=== PATIENT | male | born 1960 | race Caucasian/White ===

== ENCOUNTER 2018-10-14 08:50 | Emergency (ER) | payer MEDICAID ==
[~2018-10-14 08:50] MED LIST: HYDR-4383 PO
[2018-10-14 08:55] VITALS: BP 147/99
== END 2018-10-14 09:39 | disposition home or self-care (01) ==
LOC: ER 08:50
DX: F12.90 Cannabis use, unspecified, uncomplicated (principal); F15.90 Other stimulant use, unspecified, uncomplicated; F11.90 Opioid use, unspecified, uncomplicated; M19.90 Unspecified osteoarthritis, unspecified site; G89.29 Other chronic pain; M54.9 Dorsalgia, unspecified
CPT/HCPCS: 99284

== ENCOUNTER 2020-09-23 06:16 | Day surgery (SDC) | payer MEDICAID ==
[2020-09-17 11:01] LABS: CLARITY,URINE CLEAR (Clear); COLOR,URINE YELLOW (Yellow); GLUCOSE, URINE NEGATIVE (Neg); KETONES,URINE NEGATIVE (Neg); LEUKOCYTE ESTERASE ,URINE NEGATIVE (Neg); NITRITES, URINE NEGATIVE (Neg); OCCULT BLOOD,URINE NEGATIVE (Neg); PH,URINE 6.5 (4.8-8.0); PROTEIN,URINE NEGATIVE (Neg); UROBILINOGEN,URINE 0.2 E.U/dL (0.2-1.0)
[2020-09-17 11:02] LABS: UA COLLECTION TYPE NON-SPECIFIED
[2020-09-17 11:03] LABS: BASOPHILS % (AUTO) 0.6 % (0-1); EOSINOPHILS # (AUTO) 0.2 X10'3 (0-0.9); LYMPHOCYTES # (AUTO) 1.6 X10'3 (1.1-4.8); LYMPHOCYTES % (AUTO) 26.1 % (21-51); MEAN CORPUSCULAR HEMOGLOBIN 27.7 PG (27.0-31.0); MEAN CORPUSCULAR HGB CONC 33.3 g/dL (33.0-36.5); MEAN CORPUSCULAR VOLUME 83.4 FL (78-98); MEAN PLATELET VOLUME 8.2 FL (7.4-10.4); MONOCYTES # (AUTO) 0.3 X10'3 (0-0.9); MONOCYTES % (AUTO) 4.7 % (2-12); NEUTROPHILS # (AUTO) 4.1 X10'3 (1.8-7.7); NEUTROPHILS % (AUTO) 65.6 % (42-75); PRE OP HEMOGLOBIN 13.3 g/dL (14.0-17.9); PRE OP PLATELET COUNT 168 X10'3 (140-440); RED BLOOD COUNT 4.79 X10'6 (4.70-6.10); RED CELL DISTRIBUTION WIDTH 14.3 % (11.5-14.5)
[2020-09-17 11:17] LABS: PRE OP PROTIME 10.1 SECONDS (9.0-12.0)
[2020-09-17 11:27] LABS: ALBUMIN 3.6 G/DL (3.4-5.0); ALBUMIN/GLOBULIN RATIO 0.9 (1.1-1.5); ALKALINE PHOSPHATASE 84 IU/L (46-116); BLOOD UREA NITROGEN 28 MG/DL (7-18); BUN/CREATININE RATIO 30.8 (5.4-32.0); CALCIUM 9.1 MG/DL (8.5-10.1); CHLORIDE 104 MMOL/L (99-107); CREATININE 0.91 MG/DL (0.60-1.10); PRE OP ALT 21 U/L (30-65); PRE OP ANION GAP 7 (8-16); PRE OP AST 17 U/L (10-37); PRE OP BILIRUB, TOTAL 0.5 MG/DL (0.0-1.0); PRE OP GLUCOSE 98 MG/DL (70-104); PRE OP POTASSIUM 4.9 MMOL/L (3.4-5.1); PRE OP SODIUM 137 MMOL/L (135-145); TOTAL PROTEIN 7.6 G/DL (6.4-8.2); eGFR 84 ML/MIN
[2020-09-23] VITALS (15 sets, daily range): BP systolic 124–197; BP diastolic 66–141
[~2020-09-23] VITALS: Ht 170.2 cm; Wt 89.0 kg
[~2020-09-23 06:16] MED LIST changes: +BUPR1FIL3 SL; -HYDR-4383 PO; +IBU TD; +IBUP-862 PO; +MELOX TD; +NEURONTIN TD; +ceFAZolin 2gm in dextrose, iso 50 ML IV ONE; +famotidine 20mg tablet PO ONE; +ringers solution, lacted 1,000 ML IV SCH
[2020-09-23] MEDS ORDERED: METH-603 PO (07:12)
[2020-09-23] MEDS ORDERED: BUPIVAcaine/PF 2.5 mg/ml (0.25%) 30ml vial ONE ×2 (07:17→12:33)
[2020-09-23] MEDS ORDERED: midazolam 1 mg/ML 2ml injection ONE (09:43)
[2020-09-23] MEDS ORDERED: fentaNYL /PF 50mcg/ml 5ml ampule ONE (09:43)
[2020-09-23] MEDS ORDERED: sevoflurane 250ml liquid IH ONE (09:44)
[2020-09-23] MEDS ORDERED: acetaminophen 1000 MG/100ml vial IV ONE (09:44)
[2020-09-23] MEDS ORDERED: propofol inj 20 ML IV ONE (10:20)
[2020-09-23] MEDS ORDERED: neostigmine methylsulfate 1 MG/ML 10ml vial ONE (10:20)
[2020-09-23] MEDS ORDERED: dexamethasone sod phosphate 4mg/ml inj. ONE (10:20)
[2020-09-23] MEDS ORDERED: glycopyrrolate 0.2mg/ml inj ONE (10:20)
[2020-09-23] MEDS ORDERED: ondansetron/PF 4mg/2ml inj ONE (10:20)
[2020-09-23] MEDS ORDERED: rocuronium 10mg/ml inj IV ONE (10:20)
[2020-09-23] MEDS ORDERED: LIDOcaine 2% (20mg/ml) 5ml vial ONE (10:20)
[2020-09-23] MEDS ORDERED: ringers solution, lacted 1,000 ML IV SCH (11:20)
[2020-09-23] MEDS ORDERED: proCHLORperazine 10 MG/2 ml inj IV PRN (11:20)
[2020-09-23] MEDS ORDERED: ondansetron/PF 4mg/2ml inj IV PRN (11:20)
[2020-09-23] MEDS ORDERED: morphine 2 MG/ML inj. syringe IV PRN (11:20)
[2020-09-23] MEDS ORDERED: morphine 4 MG/ML inj SYRINge IV PRN (11:20)
[2020-09-23] MEDS ORDERED: meperidine/PF 25mg/ml syringe IV PRN ×3 (11:20)
[2020-09-23] MEDS ORDERED: BUPIVACAINE liposomal/PF 13.3 MG/ML vial IM ONE (12:30)
[2020-09-23] MEDS ORDERED: BUPIVAcaine/PF 2.5mg/ml (0.25%) 10ml vial ONE (12:30)
[2020-09-23] MEDS ORDERED: meperidine/PF 25mg/ml syringe ONE (13:35)
--- NOTE | 2020-09-23 13:37 | NUR ---
Received from OR via [facility], accompanied by Anesthesiologist DR. TERRY and report given by Anesthesiologist. PATIENT IS SLEEPING, SPINE ON GURNEY, FOUR BANDAGES ON LEFT LOWER QUADRANT AND ABDOMINAL BAND ON THE ABDOMEN, NO BLEEDING OR DRAINAGE NOTED, ON O2 10L WITH MASK, PIV ON LEFT FOREARM 20G LR RUNNING, SIDE RAILS UP, WILL MONITOR. Addendum: 09/23/20 at 1423 by Katharina Hough RN Amended: Links added.
[2020-09-23] MEDS ORDERED: hydrALAZINE 20mg/ml inj. IV ONE (14:10)
[2020-09-23] MEDS: hydrALAZINE 20mg/ml inj. IV PRN ×3 (14:12→14:44)
[2020-09-23 14:26] LABS: ISTAT CREATININE 0.9 mg/dL (0.8-1.3); ISTAT HGB 15.6 g/dl (14.0-18.0); ISTAT IONIZED CALCIUM 1.14 mmol/L (1.03-1.32); ISTAT K 4.7 mmol/L (3.5-5.1); POC BUN/CREATININE RATIO 32.2 (5.4-32.0)
--- NOTE | 2020-09-23 15:08 | NUR ---
PATIENT' BP CONTINUED TO INCREASE SINCE HIS ARRIVAL TO RECOVERY, CALLED DR. TERRY, UPDATED, ORDERS RECEIVED, HYDRALAZINE TAKEN FROM [facility] AND GIVEN EMERGENTLY WHILE WAITING FOR PHARMACY TO ACKNOWLEDGE. Addendum: 09/23/20 at 1511 by Katharina Hough RN Amended: Links added.
[2020-09-23] MEDS ORDERED: methadone 10mg tablet PO ONE (15:45)
--- NOTE | 2020-09-23 15:57 | NUR ---
PATIENT'S V.S. STABLE, PAIN IS 7/10 ON LLQ, PATIENT OFFERED IV TORADOL 30MG PER MD ORDER BUT HE REFUSES IT. METHASONE 50MG PO ADMINISTERED PER MD ORDER, PIV D/C'D FROM LEFT FOREARM 20G CATHETER INTACT, BANDAGES ON LLQ INTACT WITH NO BLEEDING OR DRAINAGE, ABD BAND IN PLACE, DISCHARGE INSTRUCTIONS GIVEN TO THE PATIENT, HE VERBALIZED UNDERSTANDING, PATIENT TRANSFERRED WITH WHEEL CHAIR WITHOUT INCIDENTS WITH ONE BAG OF BELONGINGS TO HIS SISTER WHO IS DRIVING HIM HOME. Addendum: 09/23/20 at 8374 by Katharina Hough RN Amended: Links added.
== END 2020-09-23 15:57 | disposition home or self-care (01) ==
LOC: PAS 06:16
PROVIDERS: ATTEND Surgery
DX: K43.9 Ventral hernia without obstruction or gangrene (principal); K42.9 Umbilical hernia without obstruction or gangrene; F32.9 Major depressive disorder, single episode, unspecified; Z20.822 Contact with and (suspected) exposure to COVID-19; M19.90 Unspecified osteoarthritis, unspecified site; M10.9 Gout, unspecified; I10 Essential (primary) hypertension; M86.9 Osteomyelitis, unspecified; F11.90 Opioid use, unspecified, uncomplicated; Z98.890 Other specified postprocedural states; Z87.891 Personal history of nicotine dependence; Z79.01 Long term (current) use of anticoagulants; Z86.19 Personal history of other infectious and parasitic diseases; Z83.3 Family history of diabetes mellitus; Z82.49 Family history of ischemic heart disease and other diseases of the circulatory system; Z83.6 Family history of other diseases of the respiratory system; Z82.61 Family history of arthritis
CPT/HCPCS: 36415; 49652; 64488; 71046; 80047; 80053; 81003; 82948; 85025; 85610; 85730; 87635; 93005; C1758; C1781; C9290; J0360; J1100; J2001; J2175; J2250; J2405; J2704; J2710; J3010; J3490; J7030; J7120; S2900; A4215; A4618; J0131

== ENCOUNTER 2020-10-01 06:29 | Emergency (ER) | payer MEDICAID ==
[~2020-10-01] VITALS: Ht 170.2 cm; Wt 84.1 kg
[~2020-10-01 06:29] MED LIST changes: -BUPR1FIL3 SL; +METH-603 PO; -ceFAZolin 2gm in dextrose, iso 50 ML IV ONE; -famotidine 20mg tablet PO ONE; -ringers solution, lacted 1,000 ML IV SCH
[2020-10-01] MEDS ORDERED: oxyCODONE/APAP 10/325mg tablet PO ONE ×2 (07:20→07:45)
[2020-10-01 07:59] LABS: BASOPHILS % (AUTO) 0.9 % (0-1); EOSINOPHILS # (AUTO) 0.3 X10'3 (0-0.9); EOSINOPHILS % (AUTO) 4.4 % (0-6); HEMATOCRIT 38.2 % (42.0-52.0); HEMOGLOBIN 12.4 g/dl (14.0-17.9); LYMPHOCYTES # (AUTO) 1.3 X10'3 (1.1-4.8); LYMPHOCYTES % (AUTO) 21.8 % (21-51); MEAN CORPUSCULAR HEMOGLOBIN 27.8 PG (27.0-31.0); MEAN CORPUSCULAR HGB CONC 32.6 g/dL (33.0-36.5); MEAN CORPUSCULAR VOLUME 85.5 FL (78-98); MEAN PLATELET VOLUME 8.3 FL (7.4-10.4); MONOCYTES # (AUTO) 0.4 X10'3 (0-0.9); MONOCYTES % (AUTO) 6.7 % (2-12); NEUTROPHILS # (AUTO) 3.9 X10'3 (1.8-7.7); NEUTROPHILS % (AUTO) 66.2 % (42-75); PLATELET COUNT 195 X10'3 (140-440); RED BLOOD COUNT 4.46 X10'6 (4.70-6.10); RED CELL DISTRIBUTION WIDTH 14.5 % (11.5-14.5); WHITE BLOOD COUNT 5.9 X10'3 (4.5-11.0)
[2020-10-01 08:04] LABS: ALANINE AMINOTRANSFERASE 32 U/L (12-78); ALBUMIN 3.2 G/DL (3.4-5.0); ALBUMIN/GLOBULIN RATIO 0.8 (1.1-1.5); ALKALINE PHOSPHATASE 73 IU/L (46-116); ANION GAP 6 (8-16); ASPARTATE AMINO TRANSFERASE 32 U/L (10-37); BILIRUBIN,TOTAL 0.3 MG/DL (0.1-1.0); BLOOD UREA NITROGEN 34 MG/DL (7-18); CALCIUM 8.9 MG/DL (8.5-10.1); CHLORIDE 105 MMOL/L (99-107); CREATININE 0.92 MG/DL (0.60-1.10); GLUCOSE 115 MG/DL (70-104); POTASSIUM 4.5 MMOL/L (3.5-5.1); SODIUM 141 MMOL/L (135-145); TOTAL PROTEIN 7.3 G/DL (6.4-8.2); eGFR 83 ML/MIN
[2020-10-01 12:08] VITALS: BP 134/75
== END 2020-10-01 12:14 | disposition home or self-care (01) ==
LOC: ER 06:30
DX: K43.9 Ventral hernia without obstruction or gangrene (principal); M19.90 Unspecified osteoarthritis, unspecified site; G89.29 Other chronic pain; F12.90 Cannabis use, unspecified, uncomplicated; F15.90 Other stimulant use, unspecified, uncomplicated; F11.90 Opioid use, unspecified, uncomplicated; Z87.891 Personal history of nicotine dependence; Z79.899 Other long term (current) drug therapy
CPT/HCPCS: 36415; 74176; 80053; 85025; 99285

== ENCOUNTER 2021-10-20 15:49 | Emergency (ER) | payer MEDICAID ==
[~2021-10-20] VITALS: Ht 170.2 cm; Wt 95.5 kg
[2021-10-20 16:32] LABS: BASOPHILS % (AUTO) 0.7 % (0-1); EOSINOPHILS # (AUTO) 0.2 X10'3 (0-0.9); EOSINOPHILS % (AUTO) 3.2 % (0-6); HEMATOCRIT 40.1 % (42.0-52.0); HEMOGLOBIN 13.2 g/dl (14.0-17.9); LYMPHOCYTES # (AUTO) 1.4 X10'3 (1.1-4.8); LYMPHOCYTES % (AUTO) 19.1 % (21-51); MEAN CORPUSCULAR HEMOGLOBIN 27.5 PG (27.0-31.0); MEAN CORPUSCULAR VOLUME 83.4 FL (78-98); MEAN PLATELET VOLUME 8.5 FL (7.4-10.4); MONOCYTES # (AUTO) 0.4 X10'3 (0-0.9); MONOCYTES % (AUTO) 4.9 % (2-12); NEUTROPHILS # (AUTO) 5.3 X10'3 (1.8-7.7); NEUTROPHILS % (AUTO) 72.1 % (42-75); PLATELET COUNT 182 X10'3 (140-440); RED BLOOD COUNT 4.81 X10'6 (4.70-6.10); RED CELL DISTRIBUTION WIDTH 14.1 % (11.5-14.5); WHITE BLOOD COUNT 7.4 X10'3 (4.5-11.0)
[2021-10-20 16:46] LABS: ALANINE AMINOTRANSFERASE 36 U/L (12-78); ALBUMIN 3.8 G/DL (3.4-5.0); ALKALINE PHOSPHATASE 77 IU/L (46-116); ANION GAP 3 (8-16); ASPARTATE AMINO TRANSFERASE 35 U/L (10-37); BILIRUBIN,TOTAL 0.8 MG/DL (0.1-1.0); BLOOD UREA NITROGEN 18 MG/DL (7-18); BUN/CREATININE RATIO 17.8 (5.4-32.0); CALCIUM 8.9 MG/DL (8.5-10.1); CHLORIDE 103 MMOL/L (99-107); CREATININE 1.01 MG/DL (0.60-1.10); GLUCOSE 129 MG/DL (70-104); SODIUM 136 MMOL/L (135-145); TOTAL CARBON DIOXIDE 30.1 MMOL/L (24-32); TOTAL PROTEIN 7.5 G/DL (6.4-8.2); eGFR 75 ML/MIN
[2021-10-20] MEDS ORDERED: iohexol 350MG/ML 100ml bottle IV ONE (17:51)
--- NOTE | 2021-10-20 18:00 | NUR ---
IV IN L AC 2 ATTEMPTS TG
[2021-10-20] MEDS ORDERED: ipratropium/albuterol 3ml nebule NEB STA (18:55)
[2021-10-20] MEDS ORDERED: magnesium 2GM in 50ml NS 50 ML IV SCH (19:00)
[2021-10-20] MEDS ORDERED: methylPREDNISolone sod succ 125mg/2ml vial IV ONE (19:00)
[2021-10-20] MEDS ORDERED: PRED20TA PO (19:05)
[2021-10-20] MEDS ORDERED: ALBU8HFA PO (19:05)
[2021-10-20 19:14] LABS: ABG BASE EXCESS 1.8 mmol/L (-2.0-2.0); ABG HCO3 27.4 mmol/L (22.0-26.0); ABG OXYGEN SATURATION 90.6 % (94-97); ABG PCO2 (T) 46.5 mmHg (35.0-48.0); ABG PO2 (T) 58.9 mmHg (75.0-100.0); ALLEN'S TEST POSITIVE; FCOHb 2.3 % (0.0-3.9); FMetHb 0.1 % (0.0-1.5); FO2Hb 88.4 % (94-97); PATIENT TEMPERATURE 36.8; TOTAL HEMOGLOBIN 12.8 G/dl (14.0-18.0)
[2021-10-20 19:17] VITALS: BP 129/73
== END 2021-10-20 20:06 | disposition home or self-care (01) ==
LOC: ER 15:50
DX: J44.9 Chronic obstructive pulmonary disease, unspecified (principal); G89.29 Other chronic pain; M54.9 Dorsalgia, unspecified; F12.10 Cannabis abuse, uncomplicated; Z79.899 Other long term (current) drug therapy
CPT/HCPCS: 36415; 36600; 71045; 71275; 80053; 82803; 83880; 84484; 85018; 85025; 93005; 94640; 96365; 96366; 96375; 99285; J2930; J3475; Q9967; 94760

== ENCOUNTER 2021-11-21 09:53 | Outpatient (CLI) | payer MEDICAID | END 2021-11-21 23:59 | disposition home or self-care (01) | LOC: RT 09:53 | PROVIDERS: ATTEND Family Medicine | DX: J44.1 Chronic obstructive pulmonary disease with (acute) exacerbation (principal); R09.02 Hypoxemia; Z87.891 Personal history of nicotine dependence; Z79.899 Other long term (current) drug therapy | CPT/HCPCS: 94010; 94727; 94729 ==